=== PATIENT | male | born 1940 | race Caucasian/White ===

== ENCOUNTER 2022-06-09 18:08 | Observation (INO) | payer MEDICARE, SELFPAY ==
[2022-06-09] VITALS (20 sets, daily range): BP systolic 154–173; BP diastolic 67–90; PULSE 65–85; RESP 13–25; TEMP 36.4–36.7; O2SAT 97–100; BMI 31.4
--- NOTE | ~2022-06-09 | CT_ITS ---
EXAMINATION: CTA brain carotid DATE: 06/11/2022 09:29 INDICATION: Transient ischemic attack. TECHNIQUE: Computed tomographic angiography (CTA) of the head was performed without and with 100 mL O mnipaque-350 intravenous contrast. CTA of the neck was performed with intravenous contrast. Automated exposure control and iterative reconstruction technique were employed. The dose-length product was 1 672.42 mGy-cm. Maximum intensity projection and volume rendered 3D-reconstructions were created by dwayne thomas technologist on a separate workstation. COMPARISON: Head CT 06/09/2022, brain MRI 06/10/2022 FINDINGS: HEAD CTA: There are scattered areas of low attenuation in the cerebral white matter. There is a promi nent perivascular space in the right basal ganglia. There is no intracranial hemorrhage, acute infarc tion, or abnormal intracranial mass lesion. The ventricles are normal in size. There are likely li es of left ocular lens replacement surgery. 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 There is mild mucosal thickening in the paranasal sinuses. There are surgical changes of the paranasal sinuses. The mastoi d air cells are normal. The vertebral arteries are codominant. There is no significant stenosis of ba silar artery or the posterior cerebral arteries. There is no significant stenosis of the intracranial internal carotid arteries or anterior or middle cerebral arteries. The anterior communicating artery is normal. The posterior communicating arteries are normal. There is no aneurysm. NECK CTA: There are no pathologically enlarged lymph nodes. There is no significant stenosis of the v ertebral arteries. There is plaque in the proximal internal carotid arteries. There is 0% stenosis of the proximal right internal carotid artery relative to normal distal artery lumen diameter (NASCET c riteria). There is 40% stenosis of the proximal left internal carotid artery relative to normal dista l artery lumen diameter. There is severe cervical spondylosis. IMPRESSION: 1. Moderate nonspecific cerebral white matter disease, which likely represents chronic small vessel i schemic disease. 2. No aneurysm or significant intracranial arterial stenosis. 3. 0% stenosis of the proximal right internal carotid artery relative to normal distal artery lumen d iameter (NASCET criteria). 4. 40% stenosis of the proximal left internal carotid artery relative to normal distal artery lumen d iameter. Reviewed, dictated and finalized at location A. R BUNDLER IMPRESSION: 1. Moderate nonspecific cerebral white matter disease, which likely represents chronic small vessel ischemic disease. 2. No aneurysm or significant intracranial arterial stenosis. 3. 0% stenosis of the proximal right internal carotid artery relative to normal distal artery lumen diameter (NASCET criteria). 4. 40% stenosis of the proximal left internal carotid artery relative to normal distal artery lumen diameter.
--- NOTE | ~2022-06-09 | XR_ITS ---
EXAMINATION: XR chest 1V portable INDICATION: Dysphagia TECHNIQUE: Portable AP chest at 1836 hours COMPARISON: 12/13/2016 FINDINGS: The lungs are free of acute opacities. No pleural effusion or pneumothorax. The cardiomedia stinal silhouette is normal. The visualized bones and soft tissues are unremarkable. IMPRESSION: 1. No acute cardiopulmonary abnormality. Reviewed, dictated and finalized at location F. ANCE LEARNING COORDINATOR
--- NOTE | ~2022-06-09 | CT_ITS ---
EXAMINATION: CT brain wo con INDICATION: Dysphagia COMPARISON: None TECHNIQUE: Standard unenhanced head CT. The dose-length product (DLP) was 605.33 mGy-cm. The mA was a djusted according to patient size. Iterative reconstruction technique was employed. FINDINGS: There is no acute intraparenchymal hemorrhage. No evidence of mass lesion. No evidence of a cute infarction. There is a prior lacunar infarct of the right basal ganglia. There is mild periventr icular and subcortical hypodensity probably related to small vessel ischemic disease. There is mild p rominence of the sulci and ventricles related to cerebral atrophy. Intracranial calcified cerebral at herosclerosis is noted. There are no extra-axial collections. There is no mass effect or midline shif t. The orbits and soft tissues are unremarkable. There is mild mucosal thickening of the paranasal si nuses. There are surgical changes of the maxillary sinuses. IMPRESSION: 1. No acute intracranial abnormality. 2. Age related findings. As per stroke protocol, I called these results to the Emergency Department, and discussed with Dr. Damien cuenca MD at 1838 hours on 06/09/2022. Reviewed, dictated and finalized at location F. TRY PICKER IMPRESSION: 1. No acute intracranial abnormality. 2. Age related findings. As per stroke protocol, I called these results to the Emergency Department, and discussed with Dr. Musa MD at 1838 hours on 06/09/2022.
--- NOTE | ~2022-06-09 | MR_ITS ---
EXAMINATION: MR brain/brain stem wo/w con DATE: 06/10/2022 09:40 INDICATION: Transient ischemic attack. TECHNIQUE: Magnetic resonance imaging (MRI) of the brain and brainstem was performed without and with 20 mL MultiHance intravenous contrast. COMPARISON: Head CT 06/09/2022 FINDINGS: There are scattered areas of nonspecific increased T2-weighted signal intensity in the cere bral and cerebellar white matter and antonio. There is no intracranial hemorrhage, acute infarction, or abnormal intracranial mass lesion. The ventricles are normal in size. There is a small left mastoid e ffusion. There are likely changes of left ocular lens replacement surgery. There is mild mucosal thic kening in the paranasal sinuses. There are surgical changes of the paranasal sinuses. IMPRESSION: 1. Moderate nonspecific cerebral and cerebellar white matter disease and pontine disease, which likel y represents chronic small vessel ischemic disease. Reviewed, dictated and finalized at location A. ATE LAWYER IMPRESSION: 1. Moderate nonspecific cerebral and cerebellar white matter disease and pontin e disease, which likely represents chronic small vessel ischemic disease.
--- NOTE | ~2022-06-09 | US_ITS ---
EXAMINATION: US carotid duplex BI DATE: 06/10/2022 11:39 INDICATION: Transient ischemic attack. TECHNIQUE: Grayscale, color Doppler, and pulsed Doppler images of the cervical carotid arteries were obtained. The degree of vessel stenosis is placed in one of the following categories: normal, <50%, 5 0-69%, >=70% but less than near-occlusion, near-occlusion, or total occlusion. Note that percent sten osis relative to normal distal artery lumen diameter is indirectly measured from velocity measurement s as described by Ciaran, et al. Radiology 2003; 229:340-346. COMPARISON: None. FINDINGS: RIGHT: The right common carotid artery (CCA) peak systolic velocity (PSV) is 82 cm/s. The right internal car otid artery (ICA) PSV is 76 cm/s. The right ICA end-diastolic velocity (EDV) is 15 cm/s. The right IC A/CCA PSV ratio is 0.9. Grayscale and color Doppler images yield an estimate of <50% diameter reducti on from plaque in the ICA. There is antegrade flow in the right vertebral artery. LEFT: The left CCA PSV is 66 cm/s. The left ICA PSV is 64 cm/s. The left ICA EDV is 11 cm/s. The left ICA/C CA PSV ratio is 1.0. Grayscale and color Doppler images yield an estimate of <50% diameter reduction from plaque in the ICA. There is antegrade flow in the left vertebral artery. IMPRESSION: 1. <50% stenosis in the right internal carotid artery. 2. <50% stenosis in the left internal carotid artery. Reviewed, dictated and finalized at location A. UCHER PHOTOENGRAVING
--- NOTE | 2022-06-09 18:17 | ECG_ITS ---
Measurements Intervals [place] Rate: 79 P: 79 WV: 255 QRS: 21 QRSD: 105 T: 79 QT: 372 QTc: 427 Interpretive Statements SINUS RHYTHM WITH FIRST DEGREE AV BLOCK CONSIDER INFERIOR INFARCT, AGE INDETERMINATE NONSPECIFIC T-WAVE ABNORMALITY- HIGH LATERAL LEADS ABNORMAL ECG NO PREVIOUS ECG AVAILABLE FOR COMPARISON Electronically Signed On 06-10-2022 14:28:18 WILL CALL ORDER CLERK by Edwin Knowles D.O.
[2022-06-09 18:38] LABS: Basophils Percent Auto 0.4 % (0.2-1.2); Eosinophils Absolute Auto 0.2 K/mm3 (0-0.3); Eosinophils Percent Auto 3.3 % (0-4.4); Hematocrit 36.7 % (42.0-52.0); Hemoglobin 11.8 g/dL (14.0-18.0); Immature Granulocyte Absolute 0.02 K/mm3 (0.00-0.031); Immature Granulocyte Percent A 0.3 % (0-0.5); Lymphocytes Absolute Auto 2.25 K/mm3 (0.9-3.2); Lymphocytes Percent Auto 31.8 % (18.3-44.2); Mean Corpuscular HGB Conc 32.2 g/dl (32-36); Mean Corpuscular Hemoglobin 29.6 pg (26-34); Mean Platelet Volume 10.9 fl (7.4-10.4); Monocytes Absolute Auto 0.8 K/mm3 (0.1-0.6); Monocytes Percent Auto 11.2 % (2.6-8.5); Neutrophils Absolute Auto 3.8 K/mm3 (1.3-6.7); Platelet Count Result 272 k/mm3 (150-375); Red Blood Count 3.99 M/mm3 (4.6-6.20); Red Cell Distribution Width 14.4 % (11.5-14.5); White Blood Count 7.1 K/mm3 (4.5-10.0)
--- NOTE | 2022-06-09 18:44 | ED.NEUROSD ---
HPI - Neuro Symptoms/Deficit General Chief Complaint: Neuro Symptoms/Deficit Stated Complaint: expressive aphasia Time Seen by Provider: 06/09/22 18:43 Source: patient, family and EMS Mode of arrival: EMS Limitations: no limitations History of Present Illness HPI Narrative: Patient is 81 years old white male brought to the emergency room by ambulance because of his tract symptoms. Patient was with his ex- shopping, went back to his car and could not managed to use the morrow and to start the car. His ex- helped him to do it, patient was able to drive back home, at home was walking funny, could remember names, presents with slurred speech, could not open the trunk of the car. Started 4:45 PM. His symptoms gradually got better, on arrival to the ED patient is awake, alert and oriented x4, denying any symptoms. basically patient back to his base in 1 hour. He denies any fever, chills, nausea, vomiting, new medications. Related Data Home Medications Medication Instructions Recorded Confirmed acetaminophen 650 mg 650 mg PO Q12H 04/27/20 04/27/20 tablet,extended release allopurinol 300 mg tablet 300 mg PO DAILY 04/27/20 04/27/20 aluminum-mag hydroxide-simethicone 5 ml PO ONCE 04/27/20 04/27/20 200 mg-200 mg-20 mg/5 mL oral susp (Maalox Advanced) aspirin 325 mg tablet,delayed 325 mg PO DAILY 04/27/20 04/27/20 release atorvastatin 80 mg tablet 80 mg PO DAILY 04/27/20 04/27/20 bisacodyl 5 mg tablet,delayed 5 mg PO ONCE 04/27/20 04/27/20 release (Alophen (bisacodyl)) calcium carbonate 200 mg calcium 200 mg PO BID 04/27/20 04/27/20 (500 mg) chewable tablet (Tums) cyclosporine 0.05 % eye drops in a 1 drp ophthalmic (eye) Q12H 04/27/20 04/27/20 dropperette (Restasis) fenofibrate nanocrystallized 145 145 mg PO DAILY 04/27/20 04/27/20 mg tablet fexofenadine 180 mg tablet 180 mg PO DAILY 04/27/20 04/27/20 (Allergy Relief (fexofenadine)) glimepiride 1 mg tablet 1 mg PO QAM 04/27/20 04/27/20 insulin aspart U-100 100 unit/mL 5 unit subcut TID 04/27/20 04/27/20 (3 mL) subcutaneous pen (Novolog FlexPen U-100 Insulin aspart) insulin detemir U-100 100 unit/mL 100 unit subcut DAILY 04/27/20 04/27/20 (3 mL) subcutaneous pen losartan 50 mg tablet 50 mg PO DAILY 04/27/20 04/27/20 metformin 1,000 mg tablet 1,000 mg PO DAILY 04/27/20 04/27/20 metoprolol tartrate 75 mg tablet 75 mg PO DAILY 04/27/20 04/27/20 omega-3 fatty acids 1,000 mg 1,000 mg PO DAILY 04/27/20 04/27/20 capsule (Fish Oil Concentrate) omeprazole magnesium 20 mg 20 mg PO DAILY 04/27/20 04/27/20 tablet,delayed release vit C 250 mg-vit E 200 unit-zinc cap PO 04/27/20 04/27/20 ox 12.5 uu-cevfnc-vdslyp-zeax capsule (ICaps AREDS2) famotidine 40 mg tablet mg 06/09/22 Allergies Allergy/AdvReac Type Severity Reaction Status Date / Time ketorolac Allergy Unknown Unknown Verified 06/09/22 18:24 Penicillins Allergy Unknown Unknown Verified 06/09/22 18:24 Review of Systems Review of Systems: All systems reviewed & are unremarkable except as noted in HPI and below PMFSH Past Medical History Medical History (Updated 06/09/22 @ 20:49 by Nata Newsome DO) AAA (abdominal aortic aneurysm) Allergic rhinitis Diabetes mellitus Essential hypertension GERD (gastroesophageal reflux disease) Gout Hyperlipidemia Pancreatitis TIA (transient ischemic attack) Surgical History Surgical History History of back surgery History of sinus surgery Family History Family History Other Acute myocardial infarction Cerebrovascular accident Family history of arthritis Family history of congestive heart failure Social History Social History Smoking status: Never smoker Alcohol intake: never Exam Narrative: General appearance: Well-developed, well-nourished Skin: Normal
[2022-06-09 18:49] LABS: INR 0.9; Prothrombin Time 12.2 Seconds (11.1-14.7)
[2022-06-09 18:50] LABS: Partial Thromboplastin Time 30.4 SECONDS (22.3-36.8)
[2022-06-09 18:57] LABS: Alanine Aminotransferase 22 U/L (6-50); Alkaline Phosphatase 93 U/L (38-126); Anion Gap 9 mmol/L (8-16); Aspartate Amino Transferase 31 U/L (17-59); Bilirubin,Total 0.5 mg/dL (0.2-1.3); Blood Urea Nitrogen 27 mg/dL (9-20); Calcium 8.9 mg/dL (8.4-10.2); Carbon Dioxide 23 mmol/L (22-30); Chloride 102 mmol/L (98-107); Estimated Glomerular Filt Rate 42; Glucose 328 mg/dL (65-110); Potassium 4.4 mmol/L (3.4-5.0); Sodium 134 mmol/L (137-145)
[2022-06-09 19:08] LABS: Troponin I 0.023 ng/mL (0.000-0.034)
[2022-06-09] MEDS: SODIUM CHLORIDE 0.9% IV 1,000 ML 999 ML IV CONT (19:26)
--- NOTE | 2022-06-09 19:44 | PC.NURSE ---
Report received from NARESH Cordova. Assumed care of patient at this time.
[2022-06-09 20:03] LABS: HCO3 VBG 21.2 mEq/l (24.0-30.0); PCO2 VBG 35.1 mmHg (42.0-48.0); PO2 VBG 44.7 mmHg (35.0-45.0); pH VBG 7.398 (7.300-7.400)
--- NOTE | 2022-06-09 20:20 | PM.IMHP ---
H&P: HPI History of Present Illness Date/Time: 06/09/22 20:20 Chief Complaint: Difficulty walking, difficulty performing activities Narrative: 81-year-old male with past medical history of essential hypertension, insulin-dependent diabetes mellitus, hyperlipidemia, GERD and prior TIAs who presented to the ER via EMS due to neuro changes. At around 4:45 in the afternoon the patient was out shopping with his ex- waiting in the car while she was in [facility]'s. When she came back out to the car he could not figure out how to start the car even though the morrow was in the admission.. His ex- help template the morrow in the ignition in let him drive home. When he got home he had difficulty finding the trunk and actually went to the front of the car to open the trunk. He was trying to open the trunk at the front dashboard. His ex- called his daughter and she came over to see the patient noticed the patient was having some slurred speech and difficulty with word finding. He did not recognize his daughter. They thusly called EMS. When the patient arrived to the ER at around 18:30 the patient's symptoms had resolved. He was moderately hypertensive. His glucoses were noted to be in 300s any received 1 L fluid bolus. The patient's labs demonstrated elevated creatinine. There are no past labs available for my review. At the time of my evaluation the patient states that he remembers all the events that occurred. He does does not understand why he did not recognize either 1 of his daughters. He does not understand why he could not figure out how to open up the trunk. He states he has never had symptoms like this before. He states that the only reason he knows he has had prior TIAs is that his doctor about 20 years ago to hold him that he had changes suggestive of TIAs on his CT scan. Patient reports that he has been having months of a sensation of globus. Is not impeding his ability to eat or swallow. His weight has been stable. He has an outpatient imaging procedure scheduled for June 20, 2022. It sounds like he may be getting a CT scan. He was evaluated by ENT within the last couple of weeks. He was started on Pepcid recently in addition to his omeprazole. Sounds as if the physician feels that his symptoms may be due to reflux. He denies any abdominal symptoms, hematochezia, melena or changes in bowel habits. Denies any urinary symptoms. Denies history of BPH. His creatinine was elevated but he denies any known history of chronic kidney disease. Review of Systems Review of Systems: 12 systems were reviewed with pertinent positives and negatives per HPI. Except as documented in the HPI, all other systems were reviewed and are negative. [facility] Past Medical History Medical History (Updated 06/10/22 @ 06:33 by Nata Newsome DO) AAA (abdominal aortic aneurysm) Allergic rhinitis Chronic dryness of both eyes Diabetes mellitus Essential hypertension GERD (gastroesophageal reflux disease) Gout Hyperlipidemia Obstructive sleep apnea Sound like the patient may have had complex obstructive sleep apnea and was having increased episodes of apnea when placed on CPAP over 20 years ago. He has never been tried on auto titrating. Pancreatitis Right cataract Maturing TIA (transient ischemic attack) He denies ever having symptoms post told by primary care physician many years ago that his CT looks like he may have had prior TIAs. Surgical History Surgical History (Updated 06/10/22 @ 06:33 by Nata Newsome DO) History of back surgery History of endovascular stent graft for abdominal aortic aneurysm (~2018) At [facility] History of sinus surgery Status post cataract extraction and insertion of intraocular lens of left eye Family History Family History Father Acute myocardial infarction Diabetes mellitus Cerebrovascular accident Family history of shyla
[2022-06-09 21:52] LABS: Glucose Point of Care 240 mg/dl (65-105)
[2022-06-09] MEDS: INSULIN GLARGINE (*BKC) 100 UNITS/ML 39 UNITS SUB-Q (22:10)
[2022-06-09] MEDS: SODIUM CHLORIDE 0.9% IV 1,000 ML 100 ML IV CONT (22:11)
--- NOTE | 2022-06-09 22:37 | PC.NURSE ---
This patient, Soham Hahn, was admitted to [facility] Surg Room 304-02. Patient/family oriented to hospital policies and general routines including ID bracelet, bed and alarms, visiting hours, pain management, procedures, bathroom and other care routines, personal items, smoking policy, room service/diet, and visiting hours. Information on how to activate the Rapid Response Team has been discussed. Patient/Family are encouraged to report perceived risks to care and to ask questions if they do not understand what they are told or what they should do.
[2022-06-10] VITALS (14 sets, daily range): BP systolic 125–151; BP diastolic 52–74; PULSE 62–69; RESP 16–18; TEMP 36.1–36.9; O2SAT 97–100
[2022-06-10] MEDS: METOPROLOL TARTRATE 50 MG TAB PO ×3 (01:28→21:31)
[2022-06-10] MEDS: METOPROLOL TARTRATE 25 MG TABLET PO ×3 (01:28→21:30)
[2022-06-10 06:19] LABS: Albumin Level 3.6 g/dL (3.5-5.1); Anion Gap 4 mmol/L (8-16); Blood Urea Nitrogen 21 mg/dL (9-20); Calcium 8.7 mg/dL (8.4-10.2); Carbon Dioxide 26 mmol/L (22-30); Chloride 104 mmol/L (98-107); Estimated CRCL calculation 48 ml/min; Estimated Glomerular Filt Rate 53; Glucose 166 mg/dL (65-110); Phosphorus 2.9 mg/dL (2.5-4.5); Potassium 4.6 mmol/L (3.4-5.0); Sodium 134 mmol/L (137-145)
[2022-06-10 08:20] LABS: Glucose Point of Care 180 mg/dl (65-105)
--- NOTE | 2022-06-10 09:45 | WPDNEURCNPN ---
Assessment and Plan Assessment and plan (1) Brain TIA: Code(s): G45.9 - Transient cerebral ischemic attack, unspecified Status: Acute (2) Alteration in speech: Code(s): R47.89 - Other speech disturbances Status: Acute (3) Confusion: Code(s): R41.0 - Disorientation, unspecified Status: Acute (4) Type 2 diabetes mellitus with hyperglycemia, with long-term current use of insulin: Code(s): E11.65 - Type 2 diabetes mellitus with hyperglycemia; Z79.4 - intermission coordinator (current) use of insulin Status: Acute (5) Hypertension: Qualifiers: Hypertension type: unspecified Qualified Code(s): I10 - Essential (primary) hypertension Code(s): I10 - Essential (primary) hypertension Status: Acute (6) Obstructive sleep apnea: Code(s): G47.33 - Obstructive sleep apnea (adult) (pediatric) Status: Acute (7) AAA (abdominal aortic aneurysm): Code(s): I71.4 - Abdominal aortic aneurysm, without rupture Status: Acute Plan Soham Hahn is a 81 year old male with a history of abdominal aortic aneurysm, diabetes, hypertension, hyperlipidemia, and prior TIA presenting for evaluation of confusion and speech change. Symptoms have resolved, raising concern for TIA. MRI negative for acute stroke. - CTA brain/carotid - Surface echocardiogram - Continue Aspirin 81mg daily and Lipitor 80mg daily Consult date: 06/10/22 Reason for consult: TIA HPI: Soham Hahn is a 81 year old male with a history of abdominal aortic aneurysm, diabetes, hypertension, hyperlipidemia, and prior TIA presenting for evaluation of confusion and speech change. Patient's LKW was 4:45PM on 06/09. Patient was out shopping with family. He could not figure out how to start the car even though the morrow was in the ignition. His ex- was able to help him and he was able to drive home. However, when he got home he had trouble finding the trunk and went to the front of the car to open the trunk. His daughter was present at that time as well who noted that his speech was slurred and he also had word finding difficulty. He also could not recognize his daughter. EMS was called and patient was taken to [place] ED. On arrival around 6:30PM, his symptoms has self-resolved. His blood pressure on arrival was in the 170s systolic.His glucose was noted to be in the 300s so he received 1L fluid bolus. Patient has completed recollection of all the events that occurred, but does not know why it happened. His CT head was unrevealing. He was admitted and restarted on daily aspirin 81mg. MRI brain negative for acute stroke. Review of Systems Constitutional: Constitutional: Reports no additional constitutional complaints Eyes: Eyes: Reports no additional eye complaints ENT: Comments: globus sensation when swallowing, chronic (2 months), choking at times (also chronic) Cardiovascular: Cardiovascular: Reports no additional cardiovascular complaints Respiratory: Respiratory: Reports no additional respiratory complaints Gastrointestinal: Gastrointestinal: Reports no additional gastrointestinal complaints Genitourinary: Genitourinary: Reports no additional male genitourinary complaints Musculoskeletal: Musculoskeletal: Reports no additional musculoskeletal complaints Integumentary/Breasts: Skin/Breast: Reports system reviewed and no additional complaints, except as docu Neurologic: Reports as per HPI, Reports Abnormal speech present and Reports confusion Psychiatric: Psychiatric: Reports confusion [facility] Past Medical History Medical History (Updated 06/10/22 @ 09:51 by Hellen Engel MD) AAA (abdominal aortic aneurysm) Allergic rhinitis Chronic dryness of both eyes Diabetes mellitus Essential hypertension GERD (gastroesophageal reflux disease) Gout Hyperlipidemia Obstructive sleep apnea Sound like the patient may have had complex obstructive sleep apnea and was having increased episodes of apnea w
[2022-06-10] MEDS: ATORVASTATIN 40 MG TABLET 80 MG PO (10:58)
[2022-06-10] MEDS: GLIMEPIRIDE 2 MG TABLET PO (10:59)
[2022-06-10] MEDS: allopurinoL 300 MG TABLET PO (10:59)
[2022-06-10] MEDS: ASPIRIN 81 MG ENTERIC TABLET PO (10:59)
[2022-06-10] MEDS: FAMOTIDINE 20 MG TABLET 40 MG PO (10:59)
[2022-06-10] MEDS: OMEGA 3 POLYUNSAT FATTY ACIDS 1 GM CAP PO ×2 (10:59→18:31)
[2022-06-10] MEDS: cycloSPORINE 0.4 ML OPHTH SOLUTION 1 DROP EACH EYE ×2 (10:59→18:31)
[2022-06-10] MEDS: ACETAMINOPHEN 325 MG TABLET 650 MG PO ×2 (11:00→21:30)
[2022-06-10] MEDS: PANTOPRAZOLE 40 MG TABLET PO (11:00)
[2022-06-10] MEDS: OPTI-GEN TAB 1 TABLET PO ×2 (11:01→18:32)
[2022-06-10] MEDS: LORATADINE 10 MG TABLET PO (11:01)
[2022-06-10] MEDS: SODIUM CHLORIDE 0.9% IV 1,000 ML 100 ML IV CONT ×2 (11:02→22:15)
[2022-06-10] MEDS: FENOFIBRATE NANOCRYSTALLIZED 145 MG TABLET PO (11:02)
[2022-06-10] MEDS: LOSARTAN POTASSIUM 50 MG TABLET PO (11:02)
[2022-06-10 11:55] LABS: Glucose Point of Care 317 mg/dl (65-105)
[2022-06-10] MEDS: INSULIN ASPART (*BKC) 100 UNITS/ML SUB-Q (12:46)
[2022-06-10] MEDS: INSULIN ASPART (*BKC) 100 UNITS/ML 10 UNITS SUB-Q (12:46)
--- NOTE | 2022-06-10 16:11 | PM.IMPN ---
Progress Note: A&P Assessment and Plan (1) Brain TIA: Code(s): G45.9 - Transient cerebral ischemic attack, unspecified Status: Acute Assessment and Plan: Patient presents with confusion. CT of the brain showed no acute infarct. He was started on aspirin. Carotid ultrasound shows less than 50% stenosis in the bilateral internal carotid arteries. Brain MRI shows moderate nonspecific cerebral and cerebellar white matter disease and pontine disease. No acute strokes. Neurology has been consulted. Patient was evaluated by PT and OT and there was no deficits and patient was not picked up. Speech therapy showed the patient had no concerning findings for dysphagia. He is currently on Lipitor high-dose. Will check echocardiogram. If his renal function improves tomorrow, will check a CTA of the head and neck. Probably home tomorrow. He would also benefit from Plavix for 3 weeks. (2) Hypertension: Qualifiers: Hypertension type: unspecified Qualified Code(s): I10 - Essential (primary) hypertension Code(s): I10 - Essential (primary) hypertension Status: Acute Assessment and Plan: Patient's blood pressure was reviewed on 06/10 Blood pressure better controlled. Will continue current medications. (3) Renal insufficiency: Code(s): N28.9 - Disorder of kidney and ureter, unspecified Status: Acute Assessment and Plan: Creatinine was 1.6 on admission. Patient's baseline creatinine is unknown. He has know knowledge of having renal insufficiency but he underlying chronic kidney disease. Patient received IV fluids in the ER and continued on admission. Will continue IV fluid hydration overnight and repeat BMP in a.m.. (4) Type 2 diabetes mellitus with hyperglycemia, with long-term current use of insulin: Code(s): E11.65 - Type 2 diabetes mellitus with hyperglycemia; Z79.4 - keno terminal operator (current) use of insulin Status: Acute Assessment and Plan: No A1c listed. The patient's blood glucose was reviewed on 06/10 Glucose fluctuates widely Continue AccuCheks covering with sliding scale. Hypoglycemia protocol available as needed. Continue home medications. Check A1c Subjective Date/time seen: 06/10/22 16:12 Interval history: 81yo male with DM and HTN here for altered mental status. Patient states he had an episode of confusion yesterday that lasted 1.5 hours. Denies that there was any numbness, tingling or weakness in his extremities. Glucose was elevated. Never has hypoglycemic episodes. Never had this before. He has been off aspirin for about 2 years now. He does not have any underlying kidney issues that he is aware of. His family is at bedside and provide some details to the history. Exam Narrative: AF 97.1 146/68 68 16 100% ra Gen - NARD Chest - CTA bilaterally, nml RR CV - RRR S1/S2. Tele showing PVCs Abd - Soft, NT/ND, Positive BS Ext - trace pedal edema Neuro - Alert and oriented. Nonfocal exam. Psych - Nml mood and affect Skin - Warm and dry Objective Data Vital Signs Vital Signs: Vital Signs - 24 hr 06/09/22 18:30 06/09/22 18:30 06/09/22 18:34 Temperature 98.0 F Pulse Rate 85 83 Respiratory Rate 17 17 Blood Pressure 172/68 H Pulse Oximetry 97 97 Oxygen Delivery Room Air 06/09/22 18:46 06/09/22 18:48 06/09/22 19:01 Temperature Pulse Rate 77 77 78 Respiratory Rate 14 23 H 14 Blood Pressure 154/69 H 173/77 H Pulse Oximetry Oxygen Delivery 06/09/22 19:06 06/09/22 19:25 06/09/22 19:29 Temperature Pulse Rate 79 71 73 Respiratory Rate 21 H 25 H Blood Pressure 162/73 H Pulse Oximetry Oxygen Delivery 06/09/22 19:30 06/09/22 19:45 06/09/22 20:00 Temperature Pulse Rate 71 71 68 Respiratory Rate 20 13 15 Blood Pressure Pulse Oximetry Oxygen Delivery 06/09/22 20:01 06/09/22 20:16 06/09/22 20:18 Temperature Pulse Rate 68 70 67 Respiratory Ra
[2022-06-10 17:16] LABS: Glucose Point of Care 184 mg/dl (65-105)
[2022-06-10] MEDS: INSULIN ASPART (*BKC) 100 UNITS/ML 14 UNITS SUB-Q (18:29)
[2022-06-10 21:03] LABS: Glucose Point of Care 200 mg/dl (65-105)
[2022-06-10] MEDS: INSULIN GLARGINE (*BKC) 100 UNITS/ML 43 UNITS SUB-Q (21:31)
[2022-06-11] VITALS (9 sets, daily range): BP systolic 138–148; BP diastolic 60–64; PULSE 62–72; RESP 18; TEMP 35.9–36.6; O2SAT 99–100
--- NOTE | 2022-06-11 | ECHO_ITS ---
Patient Info Name: Soham Hahn Age: 81 years : 1940 Gender: Male Ht: 71 in Wt: 226 lbs BSA: 2.29 m2 Exam Date: 06/11/2022 3:29 PM Exam Location: [facility] Pulmonary Patient Status: Outpatient Admit Date: 06/09/2022 Staff Ordering Physician: Ld Rosenbaum MD Motorcycle Tester: Roby Thakur, MALLY, RT Attending Provider: Isaias Shah MD Exam Type: CA echo doppler w bubble study Study Info Indications G45.8 - Other transient cerebral ischemic attacks and related syndromes Complete two-dimensional, color flow and Doppler transthoracic echocardiogram is performed with contrast to opacify the left ventricle and to improve the deliniation of the left ventricle endocardial borders. Strain analysis performed. Summary 1. Left ventricular chamber dimension is normal. 2. Left ventricular systolic function is normal, estimated at 50-55%. 3. There is mildly increased left ventricular wall thickness. 4. The left ventricular diastolic function is grade I diastolic dysfunction. 5. Global longitudinal strain is abnormal at -15 %. 6. Right ventricular systolic function is normal. 7. Intact interatrial septum visualized by color flow and agitated saline imaging. Negative bubble study. 8. There is mild aortic valve calcification. 9. There is moderate aortic valve regurgitation. 10. The mitral valve annulus is mildly calcified. 11. There is mild to moderate mitral valve regurgitation. 12. There is mild tricuspid valve regurgitation. 13. There is mild pulmonic regurgitation. Left Ventricle Left ventricular chamber dimension is normal. Left ventricular systolic function is normal, estimated at 50-55%. There is mildly increased left ventricular wall thickness. The left ventricular diastolic function is grade I diastolic dysfunction. Global longitudinal strain is abnormal at -15 %. Right Ventricle Right ventricular chamber dimension is normal. Right ventricular systolic function is normal. Left Atria Left atrial chamber dimension is normal. Right Atria Right atrial chamber dimension is normal. Atrial Septum Intact interatrial septum visualized by color flow and agitated saline imaging. Negative bubble study. Aortic Valve The aortic valve is trileaflet. There is no aortic valve stenosis. There is moderate aortic valve regurgitation. There is mild aortic valve calcification. Pulmonic Valve The pulmonic valve is normal. There is mild pulmonic regurgitation. Mitral Valve There is mild to moderate mitral valve regurgitation. The mitral valve annulus is mildly calcified. Tricuspid Valve There is mild tricuspid valve regurgitation. Pericardium/Pleural The pericardium appears epicardial fat pad. There is no pericardial effusion. Inferior Vena Cava Normal inferior vena cava with >50% collapse upon inspiration consistent with normal right atrial pressure, 3 mmHg. Aorta The aortic root size at the sinus of Valsalva is normal. Left Ventricular Outflow Tract Name Value Normal LVOT 2D LVOT Diameter 2.2 cm LVOT Doppler LVOT Peak Gradient 1 mmHg LVOT Mean Gradient 1 mmHg
[2022-06-11 07:04] LABS: Anion Gap 4 mmol/L (8-16); Blood Urea Nitrogen 16 mg/dL (9-20); Calcium 8.3 mg/dL (8.4-10.2); Carbon Dioxide 26 mmol/L (22-30); Chloride 109 mmol/L (98-107); Estimated CRCL calculation 56 ml/min; Estimated Glomerular Filt Rate > 60; Glucose 111 mg/dL (65-110); Sodium 139 mmol/L (137-145)
[2022-06-11 07:53] LABS: Glucose Point of Care 117 mg/dl (65-105)
[2022-06-11] MEDS: SODIUM CHLORIDE 0.9% IV 1,000 ML 100 ML IV CONT (08:37)
[2022-06-11] MEDS: ASPIRIN 81 MG ENTERIC TABLET PO (08:40)
[2022-06-11] MEDS: FENOFIBRATE NANOCRYSTALLIZED 145 MG TABLET PO (08:40)
[2022-06-11] MEDS: ACETAMINOPHEN 325 MG TABLET 650 MG PO (08:40)
[2022-06-11] MEDS: OPTI-GEN TAB 1 TABLET PO (08:40)
[2022-06-11] MEDS: PANTOPRAZOLE 40 MG TABLET PO (08:40)
[2022-06-11] MEDS: OMEGA 3 POLYUNSAT FATTY ACIDS 1 GM CAP PO (08:40)
[2022-06-11] MEDS: ATORVASTATIN 40 MG TABLET 80 MG PO (08:40)
[2022-06-11] MEDS: cycloSPORINE 0.4 ML OPHTH SOLUTION 1 DROP EACH EYE (08:41)
[2022-06-11] MEDS: LORATADINE 10 MG TABLET PO (08:41)
[2022-06-11] MEDS: FAMOTIDINE 20 MG TABLET 40 MG PO (08:41)
[2022-06-11] MEDS: allopurinoL 300 MG TABLET PO (08:41)
[2022-06-11] MEDS: METOPROLOL TARTRATE 50 MG TAB PO (08:41)
[2022-06-11] MEDS: LOSARTAN POTASSIUM 50 MG TABLET PO (08:41)
[2022-06-11] MEDS: METOPROLOL TARTRATE 25 MG TABLET PO (08:42)
[2022-06-11] MEDS: INSULIN ASPART (*BKC) 100 UNITS/ML 14 UNITS SUB-Q (09:15)
[2022-06-11 11:47] LABS: Glucose Point of Care 148 mg/dl (65-105)
[2022-06-11] MEDS: INSULIN ASPART (*BKC) 100 UNITS/ML 10 UNITS SUB-Q (11:55)
[2022-06-11 11:59] LABS: Glucose Point of Care 344 mg/dl (65-105)
[2022-06-11 12:26] LABS: Hemoglobin A1C 9.6 % (<5.7)
--- NOTE | 2022-06-11 14:55 | PM.DS ---
DS: Admitting Diagnosis Discharge Date 06/11/22 Admitting Diagnosis Altered mental status DS: Discharge Diagnosis Discharge Diagnosis (1) Brain TIA: Code(s): G45.9 - Transient cerebral ischemic attack, unspecified Status: Acute (2) Hypertension: Qualifiers: Hypertension type: unspecified Qualified Code(s): I10 - Essential (primary) hypertension Code(s): I10 - Essential (primary) hypertension Status: Acute (3) Renal insufficiency: Code(s): N28.9 - Disorder of kidney and ureter, unspecified Status: Acute (4) Type 2 diabetes mellitus with hyperglycemia, with long-term current use of insulin: Code(s): E11.65 - Type 2 diabetes mellitus with hyperglycemia; Z79.4 - lobsterman (current) use of insulin Status: Acute DS: Summary Hospital Course Reason for hospitalization: 81yo male with DM and HTN here for altered mental status. Please see H&P for details. Hospital Course: Patient presents with confusion.? CT of the brain showed no acute infarct.? He was no longer taking aspirin and this was restarted. Carotid ultrasound shows less than 50% stenosis in the bilateral internal carotid arteries.? 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 No acute strokes.? Neurology was consulted.? Patient was evaluated by PT and OT and there was no deficits and patient was not picked up.? Speech therapy showed the patient had no concerning findings for dysphagia.? He is currently on Lipitor high-dose which we continued. 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 Creatinine was 1.6 on admission. Patient's baseline creatinine is unknown. Patient received IV fluids in the ER.? Creatinine improved to 1.1. A1c was 9.6 and patient made aware. Encouraged patient to lead a healthy lifestyle. He did not have any recurrence of his neurologic symptoms. He overall did well and was able to be discharged home on 06/11/22. Status at Discharge Cognitive/behavioral status at discharge: Stable Time Spent with Patient Time attestation: Total time spent providing and/or coordinating discharge services: 32 minutes Time spent: Greater than 30 minutes Exam Narrative: AF 148/64 68 18 100% ra Gen - NARD Chest - CTA bilaterally, nml RR CV - RRR S1/S2. Tele showing PVCs and 1st degree AVB and occasional pause Abd - Soft, NT/ND, Positive BS Ext - no pedal edema Neuro - Alert and oriented. Nonfocal exam. Psych - Nml mood and affect Skin - Warm and dry DS: Data Data Completed and Pending Labs on day of discharge: Labs from last 24 hours 06/11/22 06/11/22 06/11/22 11:41 07:40 06:34 Sodium Potassium Chloride Carbon Dioxide Anion Gap BUN Creatinine Estim Creat Clear Calc Estimated GFR Glucose POC Capillary Glucose 148 H 117 H Hemoglobin A1c 9.6 H Calcium 06/11/22 06/10/22 06/10/22 06:34 20:55 16:50 Sodium 139 Potassium 4.0 Chloride 109 H Carbon Dioxide 26 Anion Gap 4 L BUN 16 Creatinine 1.10 Estim Creat Clear Calc 56 Estimated GFR > 60 Glucose 111 H POC Capillary Glucose 200 H 184 H Hemoglobin A1c Calcium 8.3 L 06/09/22 18:08 Sodium Potassium Chloride Carbon Dioxide Anion Gap BUN Creatinine Estim Creat Clear Calc Estimated GFR Glucose POC Capillary Glucose 344 H Hemoglobin A1c Calcium Discharge Plan Discharge Attending physician on discharge: Ld Rosenbaum Consulting providers: Hellen Engel Discharging Clinician: Ld Rosenbaum Anticipated Discharge Date/Time: 06/11/22 16:18 Patient Disposition: Home, Self-Care Activity: as tolerated Diet: diabetic Discharge Instructions: Please check glucose before meals and before bed. Record and bring into your doctor for review. Check blood pressure 1 to 2 times a day. Record and
== END 2022-06-11 16:55 | disposition home or self-care (01) ==
LOC: ANHED 19:21 → ANH3MEDSUR 21:31
PROVIDERS: Internal Medicine; Admitting Provider Family Medicine; Emergency Provider Emergency Medicine; PCP Family Medicine; Visit Provider Internal Medicine
DX: G45.9 Transient cerebral ischemic attack, unspecified (principal); I10 Essential (primary) hypertension; N28.9 Disorder of kidney and ureter, unspecified; E11.65 Type 2 diabetes mellitus with hyperglycemia; G47.33 Obstructive sleep apnea (adult) (pediatric); I71.40 Abdominal aortic aneurysm, without rupture, unspecified; K21.9 Gastro-esophageal reflux disease without esophagitis; M10.9 Gout, unspecified; E78.5 Hyperlipidemia, unspecified; R29.701 NIHSS score 1; R90.82 White matter disease, unspecified; G93.89 Other specified disorders of brain; I08.3 Combined rheumatic disorders of mitral, aortic and tricuspid valves; R94.31 Abnormal electrocardiogram [ECG] [EKG]; Z86.73 Personal history of transient ischemic attack (TIA), and cerebral infarction without residual deficits; Z66 Do not resuscitate; Z79.1 Long term (current) use of non-steroidal anti-inflammatories (NSAID); Z79.84 Long term (current) use of oral hypoglycemic drugs; Z79.82 Long term (current) use of aspirin; Z79.4 Long term (current) use of insulin; Z79.899 Other long term (current) drug therapy; Z82.3 Family history of stroke
CPT/HCPCS: 36415; 70450; 70496; 70498; 70553; 71045; 80048; 80053; 80069; 82803; 82948; 83036; 84443; 84484; 85025; 85610; 85730; 92523; 93005; 93306; 93880; 96360; 96361; 96375; 97161; 97165; 99285; A9270; A9577; G0378; J1815; J7030; Q9967